=== PATIENT | male | born 1990 | race Caucasian/White ===

== ENCOUNTER 2024-07-30 17:39 | Emergency (ER) | payer BC ==
[2024-07-30 17:56] VITALS: RESP 18
[2024-07-30] MEDS: SODIUM CHLORIDE 0.9% 1,000 ML IV ONE (18:28)
--- NOTE | 2024-07-30 18:30 | ED ---
General Adult HPI - General Chief complaint: Skin/Abscess/Foreign Body Stated complaint: cyst between legs Time Seen by Provider: 07/30/24 18:07 Source: patient Mode of arrival: ambulatory Limitations: no limitations - History of Present Illness Initial comments: 33-year-old male presenting with chief complaint of painful abscess to the groin. Located between the scrotum and rectum. Has been ongoing for 3 days. He was seen at PCP in urgent care, started on Keflex 2 days ago and Bactrim today. He is having increased pain and states that he just cannot manage the pain at home. No nausea vomiting or fevers. No drainage or bleeding from the abscess. States that he is having some pelvic discomfort. No rectal pain or bleeding. No history of abscesses. - Related Data Allergies Allergy/AdvReac Type Severity Reaction Status Date / Time No Known Allergies Allergy Verified 07/30/24 17:56 Review of Systems ROS Statement: Those systems with pertinent positive or pertinent negative responses have been documented in the HPI. ROS Other: All systems not noted in ROS Statement are negative. Past Medical History Additional Past Medical History / Comment(s): hemrrhoids History of Any Multi-Drug Resistant Organisms: None Reported Past Surgical History: Orthopedic Surgery Additional Past Surgical History / Comment(s): knee surgery Past Psychological History: No Psychological Hx Reported Smoking Status: Current every day smoker Past Alcohol Use History: Occasional Past Drug Use History: None Reported General Exam Limitations: no limitations General appearance: alert, in no apparent distress Head exam: Present: atraumatic, normocephalic, normal inspection Eye exam: Present: normal appearance, EOMI Neck exam: Present: normal inspection. Absent: meningismus Respiratory exam: Absent: respiratory distress Cardiovascular Exam: Present: tachycardia Neurological exam: Present: alert, oriented X3 Psychiatric exam: Present: normal affect, normal mood Expanded Type of lesion: Present: abscess (Abscess seen on the right buttock near the perineum) Course Vital Signs 07/30/24 07/30/24 17:53 20:34 Temperature 98.3 F 97.9 F Pulse Rate 110 H 81 Respiratory 18 18 Rate Blood Pressure 101/71 110/80 O2 Sat by Pulse 98 98 Oximetry Procedures - Incision & Drainage Consent Obtained: verbal consent Site: buttock Anesthetic Used: lidocaine 1%, without epi Scalpel Used: #11 I&D Drainage Obtained: Pus, Blood Insertion of drain: No Culture Obtained?: Yes Patient Tolerated Procedure: well Medical Decision Making - Medical Decision Making Was pt. sent in by a medical professional or institution (, [facility], SENIOR MECHANICAL DEVELOPMENT ENGINEER, urgent care, hospital, or correction...) When possible be specific @ -No Did you speak to anyone other than the patient for history (EMS, parent, family, police, friend...)? What history was obtained from this source @ -No Did you review nursing and triage notes (agree or disagree)? Why? @ -I reviewed and agree with nursing and triage notes Were old charts reviewed (outside hosp., previous admission, EMS record, old EKG, old radiological studies, urgent care reports/EKG's, correction records)? Report findings @ -No old charts were reviewed Differential Diagnosis (chest pain, altered mental status, abdominal pain women, abdominal pain men, vaginal bleeding, weakness, fever, dyspnea, syncope, headache, dizziness, GI bleed, back pain, seizure, CVA, palpatations, mental health, musculoskeletal)? @ -Differential includes uncomplicated abscess, perirectal abscess, cellulitis, this is not an all-inclusive list EKG interpreted by me (3pts min.). @ -As above X-rays interpreted by me (1pt min.). @ -None done CT interpreted by me (1pt min.). @ -CT shows increased density within the medial and posterior right gluteal subcutaneous tissues. Underlying abscess is not identified. Consider cellulitis. Minimal early phlegmon may be present U/S interpreted by me (1pt. min.). @ -None done What testing was considered but not performed or refused? (CT, X-rays, U/S, labs)? Why? @ -None What meds were considered but not given or refused? Why? @ -None Did you discuss the management of the patient with other professionals (professionals i.e. [facility] Porter, SENIOR MECHANICAL DEVELOPMENT ENGINEER, lab, RT, psych nurse, geriatric social worker, material control supervisor, teacher, corporate trust officer, watch case polisher)? Give summary @ -No Was smoking cessation discussed for >3mins.? @ -No Was critical care preformed (if so, how long)? @ -No Were there social determinants of health that impacted care today? How? (Homelessness, low income, unemployed, alcoholism, drug addiction, transportation, low edu. Level, literacy, decrease access to med. care, [facility], rehab)? @ -No Was there de-escalation of care discussed even if they declined (Discuss DNR or withdrawal of care, Hospice)? DNR status @ -No What co-morbidities impacted this encounter? (DM, HTN, Smoking, COPD, CAD, Cancer, CVA, ARF, Chemo, Hep., AIDS, mental health diagnosis, sleep apnea, morbid obesity)? @ -None Was patient admitted / discharged? Hospital course, mention meds given and route, prescriptions, significant lab abnormalities, going to OR and other pertinent info. @ -33-year-old male presenting with chief complaint of painful abscess to the erineum. On examination there is a fluctuant abscess located on the right buttock. Labs show white count of 23.9. CT shows infection of the medial and posterior right gluteal subcutaneous tissues. While CT states there is no underlying abscess I do feel fluctuant area and amenable to incise and drain the area. Culture is obtained. Patient is already on Keflex and Bactrim from urgent care, he is instructed to continue with his medications. Educated on wound care including warm compresses/soaks and continued expression of any pus. Educated on alarm symptoms and provided with strict return parameters. Follow- up with PCP. Report back to ER with any new or worsening symptoms. Discussed return parameters and answered all questions. Patient conveyed verbal understanding and agreed to the plan. I discussed this case in detail with my attending Dr. Durham Undiagnosed new problem with uncertain prognosis? @ -No Drug Therapy requiring intensive monitoring for toxicity (Heparin, Nitro, Insulin, Cardizem)? @ -No Were any procedures done? @ -Incision and drainage Diagnosis/symptom? @ -Abscess Acute, or Chronic, or Acute on Chronic? @ -Acute Uncomplicated (without systemic symptoms) or Complicated (systemic symptoms)? @ -Uncomplicated Side effects of treatment? @ -No Exacerbation, Progression, or Severe Exacerbation? @ -No Poses a threat to life or bodily function? How? (Chest pain, USA, [place], pneumonia, PE, COPD, DKA, ARF, appy, cholecystitis, CVA, Diverticulitis, Homicidal, Suicidal, threat to staff... and all critical care pts) @ -Unlikely - Lab Data Result diagrams: 07/30/24 18:25 07/30/24 18:25 Lab Results 07/30/24 07/30/24 07/30/24 Range/Units 18:25 18:25 18:25 WBC 23.9 H (3.8-10.6) k/uL RBC 4.68 (4.30-5.90) m/uL Hgb 14.2 (13.0-17.5) gm/dL Hct 42.7 (39.0-53.0) % MCV 91.4 (80.0-100.0) fL MCH 30.3 (25.0-35.0) pg MCHC 33.1 (31.0-37.0) g/dL RDW 12.9 (11.5-15.5) % Plt Count 215 (150-450) k/uL MPV 7.3 Neutrophils % 83 % Lymphocytes % 10 % Monocytes % 5 % Eosinophils % 1 % Basophils % 0 % Neutrophils # 19.8 H (1.3-7.7) k/uL Lymphocytes # 2.4 (1.0-4.8) k/uL Monocytes # 1.1 H (0-1.0) k/uL Eosinophils # 0.4 (0-0.7) k/uL Basophils # 0.1 (0-0.2) k/uL Sodium 135 L (137-145) mmol/L Potassium 4.1 (3.5-5.1) mmol/L Chloride 105 (98-107) mmol/L Carbon Dioxide 20 L (22-30) mmol/L Anion Gap 10 mmol/L BUN 16 (9-20) mg/dL Creatinine 0.98 (0.66-1.25) mg/dL Est GFR (CKD-EPI)AfAm >90 (>60 ml/min/1.73 sqM) Est GFR (CKD-EPI)NonAf >90 (>60 ml/min/1.73 sqM) Glucose 90 (74-99) mg/dL Plasma Lactic Acid Flaco 0.8 (0.7-2.0) mmol/L Calcium 9.0 (8.4-10.2) mg/dL Total Bilirubin 0.7 (0.2-1.3) mg/dL AST 19 (17-59) U/L ALT 21 (4-49) U/L Alkaline Phosphatase 73 (38-126) U/L Total Protein 6.8 (6.3-8.2) g/dL Albumin 4.2 (3.5-5.0) g/dL Disposition Clinical Impression: Abscess Disposition: HOME SELF-CARE Condition: Good Instructions (If sedation given, give patient instructions): Abscess Incision and Drainage (ED), Abscess (ED) Additional Instructions: Follow-up with your PCP. Report back to ER with any new or worsening symptoms, including but not limited to fever, chills, vomiting, worsening redness swelling or tenderness. Hold warm compresses or sit in warm baths to help express any remaining pus. Continue taking your Bactrim and Keflex as prescribed. Is patient prescribed a controlled substance at d/c from ED?: No Referrals: Brody Perez MD [Primary Care Provider] - 1-2 days Time of Disposition: 20:09
[2024-07-30] MEDS: KETOROLAC 15 MG/ML 1 ML VIAL IVP STA (18:31)
[2024-07-30 18:40] LABS: Basophils # (A) 0.1 k/uL (0-0.2); Basophils % (A) 0 %; Eosinophils # (A) 0.4 k/uL (0-0.7); Eosinophils % (A) 1 %; HCT 42.7 % (39.0-53.0); HGB 14.2 gm/dL (13.0-17.5); Lymphocytes # (A) 2.4 k/uL (1.0-4.8); Lymphocytes % (A) 10 %; MCH 30.3 pg (25.0-35.0); MCHC 33.1 g/dL (31.0-37.0); MCV 91.4 fL (80.0-100.0); Mean Platelet Volume 7.3; Monocytes # (A) 1.1 k/uL (0-1.0); Monocytes % (A) 5 %; Neutrophils # (A) 19.8 k/uL (1.3-7.7); Neutrophils % (A) 83 %; Platelet Count 215 k/uL (150-450); RBC 4.68 m/uL (4.30-5.90); RDW 12.9 % (11.5-15.5); WBC 23.9 k/uL (3.8-10.6)
[2024-07-30 19:01] LABS: ALT 21 U/L (4-49); AST 19 U/L (17-59); African American GFR (CKD) >90 (>60 ml/min/1.73 sqM); Albumin 4.2 g/dL (3.5-5.0); Alkaline Phosphatase 73 U/L (38-126); Anion Gap 10 mmol/L; Blood Urea Nitrogen 16 mg/dL (9-20); Carbon Dioxide 20 mmol/L (22-30); Chloride 105 mmol/L (98-107); Glucose 90 mg/dL (74-99); Non-African American GFR(CKD) >90 (>60 ml/min/1.73 sqM); Potassium 4.1 mmol/L (3.5-5.1); Sodium 135 mmol/L (137-145); Total Bilirubin 0.7 mg/dL (0.2-1.3); Total Protein 6.8 g/dL (6.3-8.2)
--- NOTE | 2024-07-30 19:16 | CT ---
EXAMINATION TYPE: CT pelvis w con DATE OF EXAM: 07/30/2024 6:50 PM COMPARISON: None. CLINICAL INDICATION: Male, 33 years old with history of Perineal abscess, Perineal abscess TECHNIQUE: Contrast used:100 mL of Isovue 300 with IV Contrast, (none if empty) Oral contrast used: without Oral Contrast (none if empty) FINDINGS: There is increased density within the subcutaneous tissues of the medial right gluteal region near th e midline posteriorly. No underlying abscess is identified. Consider cellulitis in the differential. This is somewhat focal medial peroneal fold. Early phlegmon could be considered, example image 60 ser ies 201 image 55. No intraperitoneal abnormality evident. Urinary bladder is normal. The prostate is unremarkable. The bowel within the pelvis are unremarkable. Note is made of few diverticuli without adjacent inflammato ry changes to suggest acute diverticulitis. No free fluid is within the pelvis. IMPRESSION: 1. INCREASED DENSITY WITHIN THE MEDIAL AND POSTERIOR RIGHT GLUTEAL SUBCUTANEOUS TISSUES. UNDERLYING A BSCESS IS NOT IDENTIFIED. CONSIDER CELLULITIS. MINIMAL EARLY PHLEGMON MAY BE PRESENT. [facility], Workstation: [facility], 07/30/2024 7:14 PM
[2024-07-30] MEDS: LIDOCAINE 1% INJ 10MG/ML (20 ML MDV) SQ ONE (19:43)
[2024-07-30 20:35] VITALS: BP 110/80; PULSE 81; TEMP 97.9
== END 2024-07-30 20:35 | disposition home or self-care (01) ==
LOC: EC 17:39
DX: L02.214 Cutaneous abscess of groin (principal); F17.200 Nicotine dependence, unspecified, uncomplicated
CPT/HCPCS: 36415; 80053; 83605; 85025; 87070; 87205; 72193; 99284; 96374; 96361; 10060; J2003; J1885; Q9967